=== PATIENT | male | born 1980 | race Two or more races ===

== ENCOUNTER 2022-03-31 18:14 | Emergency (ER) | payer OTHER ==
[~2022-03-31] VITALS: Ht 162.6 cm; Wt 59.0 kg
[2022-03-31 20:03] VITALS: BP 126/74
== END 2022-03-31 20:04 | disposition home or self-care (01) ==
LOC: ER 18:34
DX: S09.90XA Unspecified injury of head, initial encounter (principal); Y04.0XXA Assault by unarmed brawl or fight, initial encounter; Y93.89 Activity, other specified; Y92.89 Other specified places as the place of occurrence of the external cause; Y99.8 Other external cause status
CPT/HCPCS: 99283